=== PATIENT | male | born 1995 | race Caucasian/White ===

== ENCOUNTER 2018-07-14 14:25 | Emergency (ER) | payer BC ==
[2018-07-14] MEDS ORDERED: Diphtheria,Pertussis(Acell),Tetanus Vaccine 0.5 ML SDV IM ONE (14:48)
--- NOTE | 2018-07-14 14:50 | EDM.PDOC ---
ED HPI GENERAL MEDICAL PROBLEM - General Chief Complaint: Skin Complaint Stated Complaint: FISHING HOOK IN HAND Time Seen by Provider: 07/14/18 14:35 Source of Information: Reports: Patient History Limitations: Reports: No Limitations - History of Present Illness INITIAL COMMENTS - FREE TEXT/NARRATIVE: healthy 22 yo male presents to ER with fish hook imbedded into left thumb. no other complaints - Related Data Allergies Allergy/AdvReac Type Severity Reaction Status Date / Time No Known Allergies Allergy Verified 07/14/18 14:40 Home Meds: Home Meds Lisdexamfetamine [Vyvanse] 50 mg PO DAILY 07/14/18 [History] Methylphenidate [Ritalin] 4 mg PO DAILY 07/14/18 [History] Past Medical History - Past Health History Medical/Surgical History: Denies Medical/Surgical History Social & Family History - Tobacco Use Smoking Status *Q: Never Smoker - Recreational Drug Use Recreational Drug Use: No ED ROS GENERAL - Review of Systems Review Of Systems: See Below Respiratory: Denies: Shortness of Breath, Wheezing Cardiovascular: Denies: Chest Pain ED EXAM, SKIN/RASH Exam: See Below Text/Narrative:: exam limited to left thumb for fish hook removal ED SKIN PROCEDURES - Additional/Other Procedure(s) Other (Free Text) Procedure(s): area around hook cleansed with alcohol. infiltrated with 1% lidocaine at the hook entrance. hook removed without difficulty. pt tolerated well. cleaned with warm soapy water and band-aid dressing applied Course - Vital Signs Last Recorded V/S: Last Vital Signs Temp 36.2 C 07/14/18 14:41 Pulse 106 H 07/14/18 14:41 Resp 16 07/14/18 14:41 BP 143/94 H 07/14/18 14:41 Pulse Ox 98 07/14/18 14:41 - Orders/Labs/Meds Orders: Active Orders 24 hr Category Date Time Status Vaccines to be Administered [RC] PER UNIT ROUTINE Care 07/14/18 14:48 Active Meds: Medications Discontinued Medications Generic Name Dose Route Start Last Admin Trade Name Freq PRN Reason Stop Dose Admin Diphtheria/Tetanus/Acell Pertussis 0.5 ml 07/14/18 14:48 07/14/18 14:55 Adacel IM 07/14/18 14:49 0.5 ml .ONCE ONE Administration Lidocaine HCl 5 ml 07/14/18 14:48 07/14/18 14:56 Xylocaine-Mpf 1% INJECT 07/14/18 14:49 5 ml ONETIME ONE Administration Departure - Departure Time of Disposition: 15:02 Disposition: Home, Self-Care 01 Condition: Good Clinical Impression: Fish hook injury of hand Qualifiers: Encounter type: initial encounter Laterality: left Qualified Code(s): S69.92XA - Unspecified injury of left wrist, hand and finger(s), initial encounter - Discharge Information *PRESCRIPTION DRUG MONITORING PROGRAM REVIEWED*: Not Applicable *COPY OF PRESCRIPTION DRUG MONITORING REPORT IN PATIENT BRANDT: Not Applicable Instructions: Puncture Wound Referrals: PCP,None [Primary Care Provider] - Forms: ED Department Discharge Additional Instructions: wash with warm soapy water let your primary care doctor know that your tetanus was update with a Tdap today - My Orders Last 24 Hours: My Active Orders 07/14/18 14:48 Vaccines to be Administered [RC] PER UNIT ROUTINE - Assessment/Plan Last 24 Hours: My Active Orders 07/14/18 14:48 Vaccines to be Administered [RC] PER UNIT ROUTINE
== END 2018-07-14 15:17 | disposition home or self-care (01) ==
LOC: JP.ED 14:25
DX: S60.352A Superficial foreign body of left thumb, initial encounter (principal); Z23 Encounter for immunization; W45.8XXA Other foreign body or object entering through skin, initial encounter
CPT/HCPCS: 90471; 90715; 99282; J2001